=== PATIENT | male | born 2000 | race Two or more races ===

== ENCOUNTER 2019-06-09 21:12 | Emergency (ER) | payer SELFPAY ==
[~2019-06-09] VITALS: Ht 175.3 cm; Wt 83.9 kg
--- NOTE | 2019-06-09 21:32 | NUR ---
ED Nurse Note: PT WALKED IN C/O NOSEBLEED X 2, ONE IN THE MORNING AND ONE PRIOR TO WALK IN, PT REPORTS HE HAD IT FOR ABOUT ONE HOUR. PT DENIES PAIN, NO ACTIVE BLEEDING AT THIS TIME, NOTED DRIED BLOOD IN TRINIDAD NOSTRILS, AIRWAY INTACT, WILL CONT MONITOR.
[2019-06-09 21:35] VITALS: BP 133/81
[2019-06-09] MEDS ORDERED: Silver Nitrate Stick TOPIC ONE ×2 (21:45)
[2019-06-09] MEDS ORDERED: Surgicel 4in x 8in TOPIC ONE (22:00)
--- NOTE | 2019-06-09 22:10 | Emergency Room Report ---
History of Present Illness General Chief Complaint: Nosebleed Source: Patient Present Illness [facility] This is a 18-year-old male with no past medical history. He presents with chief complaint of nosebleed. Is been on and off for a few days. He has a cold for the last week. Has congestion and runny nose. Has been picking at it. Better with pressure. Allergies: Coded Allergies: PENICILLINS (Verified Allergy, Unknown, 06/09/19) Patient History Past Medical History: see triage record, old chart reviewed Past Surgical History: none Pertinent Family History: none Social History: Denies: smoking Immunizations: UTD Reviewed Nursing Documentation: PMH: Agreed; PSxH: Agreed Nursing Documentation-PMH Past Medical History: No Stated History Review of Systems Eye: Denies: eye pain, blurred vision ENT: Reports: nose congestion; Denies: ear pain, throat swelling Respiratory: Reports: cough; Denies: shortness of breath Cardiovascular: Denies: chest pain, palpitations Gastrointestinal: Denies: abdominal pain, diarrhea, nausea, vomiting Musculoskeletal: Denies: back pain, joint pain Skin: Denies: rash Neurological: Denies: headache, numbness Endocrine: Denies: increased thirst, increased urine Hematologic/Lymphatic: Denies: easy bruising All Other Systems: negative except mentioned in HPI Physical Exam Vital Signs Date Time Temp Pulse Resp B/P (MAP) Pulse Ox O2 Delivery O2 Flow Rate FiO2 06/09/19 21:29 98.1 78 18 133/81 (98) 99 Room Air Vitals normal Sp02 EP Interpretation: reviewed, normal General Appearance: well appearing, no apparent distress, alert Head: normocephalic, atraumatic Eyes: bilateral eye PERRL, bilateral eye EOMI ENT: hearing grossly normal, normal pharynx, other - Slight oozing to the left anterior septum. No active bleeding. Neck: full range of motion, supple, no meningismus Respiratory: chest non-tender, lungs clear, normal breath sounds Cardiovascular #1: regular rate, rhythm, no murmur Gastrointestinal: normal bowel sounds, non tender, no mass, no organomegaly, no bruit, non-distended Musculoskeletal: back normal, gait/station normal, normal range of motion Psychiatric: mood/affect normal Procedures Additional Procedure Procedure Narrative Procedure: Epistaxis control Indication: Epistaxis Description: Initially I try to cauterize it with silver nitrate. There is still oozing afterward. I then put a small Surgicel pressure dressing inside the nose. This controlled the bleeding. No complication. Tolerated procedure without any problem. Medical Decision Making Diagnostic Impression: Primary Impression: Epistaxis ER Course Patient presents with mild epistaxis. Probably from his nose blowing and picking. No evidence of active bleeding. No evidence of posterior bleeding. Will discharge home. Last Vital Signs Date Time Temp Pulse Resp B/P (MAP) Pulse Ox O2 Delivery O2 Flow Rate FiO2 06/09/19 21:29 98.1 78 18 133/81 (98) 99 Room Air Status: improved Disposition: HOME, SELF-CARE Condition: Stable Patient Instructions: Nosebleed, [id number] Additional Instructions: Place a small dabbled ointment in the nose twice a day. Follow-up your doctor in 7 days. Return if worse. Dimitris Turner MD Jun 09, 2019 22:10
[2019-06-09 22:20] VITALS: BP 115/75
--- NOTE | 2019-06-09 22:20 | NUR ---
ED Nurse Note: pt cleared to be d/c per ER provider, pt discharge and aftercare instruction provided, pt education done via discussion and handout, pt advised to follow up with pcp or return to ed if changes in condition, vss, ambulatory w/ steady gait, left w/ all belongings.
== END 2019-06-09 22:20 | disposition home or self-care (01) ==
LOC: EMR 21:40
DX: R04.0 Epistaxis (principal); Z88.0 Allergy status to penicillin
CPT/HCPCS: 99282